=== PATIENT | male | born 1935 | race Native Hawaiian/Other Pacific Islander ===

== ENCOUNTER 2017-05-23 14:46 | Outpatient (CLI) | payer OTHER ==
[~2017-05-23 14:46] MED LIST: CLOP75TA2 PO; NEXIUM40 M1 PO; PAROXETINE30 MG PO; RAMI2.5C2 PO
[2017-05-23 15:07] LABS: PLATELET COUNT 387 K/uL (142-355)
[2017-05-23 15:54] LABS: POTASSIUM 4.6 mmol/L (3.6-5.2); SODIUM 141 mmol/L (136-145)
== END 2017-05-23 21:19 | disposition home or self-care (01) ==
LOC: LAB 14:46
PROVIDERS: Nurse Practitioner Family
DX: Z00.00 Encounter for general adult medical examination without abnormal findings (principal); I10 Essential (primary) hypertension; K21.9 Gastro-esophageal reflux disease without esophagitis; I25.10 Atherosclerotic heart disease of native coronary artery without angina pectoris; E78.00 Pure hypercholesterolemia, unspecified; J44.9 Chronic obstructive pulmonary disease, unspecified; I50.9 Heart failure, unspecified; Z79.899 Other long term (current) drug therapy; Z51.81 Encounter for therapeutic drug level monitoring
CPT/HCPCS: 80053; 80061; 83036; 84436; 84443; 85027

== ENCOUNTER → 2017-06-30 08:14 | Outpatient (CLI) | payer OTHER | END | disposition home or self-care (01) | LOC: AMB 08:14 | DX: Z04.1 Encounter for examination and observation following transport accident (principal) ==

== ENCOUNTER 2017-07-19 15:26 | Outpatient (CLI) | payer OTHER | END 2017-07-19 19:27 | disposition home or self-care (01) | LOC: RAD 15:26 | DX: J44.1 Chronic obstructive pulmonary disease with (acute) exacerbation (principal); R06.02 Shortness of breath ==

== ENCOUNTER 2018-08-08 15:31 | Emergency (ER) | payer OTHER ==
[~2018-08-08] VITALS: Ht 172.7 cm; Wt 81.6 kg
[2018-08-08 16:55] LABS: POTASSIUM 3.9 mmol/L (3.6-5.2)
[2018-08-08 17:06] LABS: PLATELET COUNT 213 K/uL (142-355)
[2018-08-08 17:45] VITALS: BP 119/65; TEMP 97.7
== END 2018-08-08 17:45 | disposition home or self-care (01) ==
LOC: ED 15:31
PROVIDERS: Emergency Medicine
DX: B02.9 Zoster without complications (principal); K59.09 Other constipation
CPT/HCPCS: 36415; 74022; 80053; 85027; 99283